=== PATIENT | female | born 1985 | race Caucasian/White ===

== ENCOUNTER → 2023-10-24 | Outpatient (CLI) | payer BC, SELFPAY ==
--- OUTSIDE RECORDS SUMMARY | 2023-10-24 11:58 | XMS RPT_ITS | CCD ---
Author Name Unknown Address [address] [place] [address] Organization [facility] Care Team Providers Care Flyer Maker Name Role Phone Bernabe Pope Unavailable Unavailable Devon DASH, Sherwin Irvin Primary Care Provider 1( [phone] Devon DASH, Sherwin Irvin Primary Care Provider SHERWIN OSORIO Primary Care Unavailable PEG MENA Attending Unavail able Medications Completed/Discontinued Medications Medication Drug Class(es) Dates Sig (Normalized) Sig (Original) betamethasone 0.5 mg/ml / clotrimazole 10 mg/ml topical cream (1 source) Azole Antifungal, Corticosteroid Start: 06-12-2022 clotrimazole-beta methasone (LOTRISONE) cream Apply 1 application to affected area twice daily. 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] Onset: 02-05-2015 08-29-2021 Chronic Other screening for suspected conditions (not mental disorders or infectious disease) (1 source) Cancer cervix screening status; Translations: [Encounter for screening for malignant neoplasm of cervix] Episodic Unclassified (1 source) Unknown / UNK(Unknown) Onset: 08-28-2017 Past or Other Problems Problem Classification Problem Date Documented Da te Episodic/Chronic Other and delivery including normal (2 sources) Normal ; Translations: [Encounter for supervision of normal , unspecified, unspecified trimester] Onset: 02-05-2015 02-05-2015 Episodic Unclassified (1 source) SORE THROAT,DRAINAGE Onset: 08-28-2017 Results Test Name Value Interpretation Reference Range Facil ity Vital Signs Date Time Vital Sign Value Performing Clinician Michelle sung 06-12-2022 13:12-0400 Body height 162.6 cm Peg David MD Work Phone: [facility] 06-12-2022 13:12-0400 Body weight 79.38 kg Peg David MD Work Phone: [facility] 06-12-2022 13:12-0400 Diastolic blood pressure 78 mm[Hg] Peg David MD Work Phone: [facility] 06-12-2022 13:12-0400 Systolic blood pressure 120 mm[Hg] Peg David MD Work Phone: [facility] Encounters Encounter Date Encounter Type Care Provider Facility Start: 06-12-2022 End: 06-12-2022 ambulatory SHERWIN OSORIO Facility:[facility] Start: 06-12-2022 End: 06-12-2022 Patient encounter procedure Peg David MD Work Phone: OB/Gynecology Plan of Treatment Date Care Activity Detail Author Start: 06-16-2025 Urine microalbumin profile DTAP,TDAP,TD (3 - Td or Tdap) [facility] Start: 12-31-2022 HPV TESTING HPV TESTING [facility] Start: 12-31-2022 PAP TESTING PAP TESTING [facility] Start: 05-04-2022 Influenza vaccination INFLUENZA (#1) [facility] Start: 09-03-2021 DEPRESSION ASSESSMENT DEPRESSION ASSESSMENT [facility] Start: 2003 HEPATITIS C SCREENING HEPATITIS C SCREENING [facility] Start: 1997 Adult depression screening assessment DEPRESSION SCREENING [facility] Start: 1985 COVID-19 VACCINE (#1) COVID-19 VACCINE (#1) [facility] Start: 1985 HEPATITIS B (1 of 3 - 3-dose series) HEPATITIS B (1 of 3 - 3-dose series) [facility] PAP FLUID CERVICAL SCREENING PAP FLUID CERVICAL SCREENING Lab Routine Screening for cervical cancer Encounter for screening for human papillomavirus (HPV) 06/12/2022 1:36 PM EDT [facility] Work Phone: [facility] Immunizations Immunization Date Immunization Notes Care Provider Gerson rod 07-19-2015 influenza, injectabl e, quadrivalent, contains preservative Peg David MD Work Phone: [facility] Work Phone: 06-16-2015 tetanus toxoid, redu lisa diphtheria toxoid, and acellular pertussis vaccine, adsorbed Peg David MD Work Phone: [facility] 03-07-2013 tetanus toxoid, redu lisa diphtheria toxoid, and acellular pertussis vaccine, adsorbed Peg David MD Work Phone: [facility] Work Phone: Payers Date Payer Category Payer Unknown [id number] 2011 Unknown [employer] PPO OOS [id number] 2011-Present [phone] [id number] [place] [address] PPO [id number] Social History Date Type Detail Facility Start: 01-24-2013 End: 06-12-2022 Tobacco smoking status NHIS Never smoked tobacco [facility] Work Phone: Start: 01-24-2013 End: 06-12-2022 Tobacco use and exposure Smokeless tobacco non-user [facility] Work Phone: Start: 05-02-2021 End: 06-12-2022 Alcohol intake Current drinker of alcohol (finding) [facility] Start: 08-20-2012 History SDOH Alcohol Comment OCCASIONALLY, BUT NOT WHILE [facility] Start: 1985 Sex Assigned At Not on file [facility] Progress note 06-12-2022 Note Date & Type Note Facility 06-12-2022 Note HNO ID: [id number] Author: Peg David MD Service: ? Author Type: Physician Type: Progress Notes Filed: 06/12/2022 1:44 PM Note Text: Thao is a 37 year old who presents for an annual gynecologic exam without complaints. 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 Still with occasional vaginal irritation - when not drinking enough fluids Menses: cycles every 28 days and 4 days of flow. Contraception: combined hormonal contraceptives HPV vaccine: No Last Pap: 01/04/2018 normal HPV: 01/02/2018 negative History of abnormal pap: No Last mammogram: never Sexually active: Yes History of STDS: None Patient concerns for STD exposure: No. Pain with intercourse: No Postcoital bleeding: No Exercise: active Diet: balanced OB History T3 L3 SAB0 IAB0 Ectopic0 Multiple0 Live Births3 Bit Gatherer History LMP: 04/17/2021, Having periods Age at Menarche: Age at First : Age at Menopause: Bit Gatherer History Comments: Sexual Activity: Yes; Male Contraception: Pill PAST MEDICAL HISTORY Diagnosis Date Gestational hypertension 03/31/2013 NEGATIVE MEDICAL HISTORY PAST SURGICAL HISTORY Procedure Laterality Date TONSILLECTOMY PRIMARY/SECONDARY Tonsillectomy FAMILY HISTORY Problem Relation Age of Onset Lipids Mother Cancer Father SKIN CANCER Diabetes Father Hypertension Father Cancer Paternal Grandfather SKIN Cancer Paternal Aunt SKIN Cancer Paternal Uncle SKIN Cancer Paternal Aunt SKIN Cancer Paternal Uncle SKIN Cancer Paternal Uncle SKIN SOCIAL HISTORY Social History Tobacco Use Smoking status: Never Smokeless tobacco: Never Vaping Use Vaping Use: Never used Substance Use Topics Alcohol use: Yes Comment: OCCASIONALLY, BUT NOT WHILE Drug use: No REVIEW OF SYSTEMS Abdomen: No abdominal pain, nausea, vomiting, diarrhea, or constipation. No bloating, early satiety, indigestion, or increased flatulence. Bladder: No dysuria, gross hematuria, urinary frequency, urinary urgency, or incontinence. Breast: No breast lumps, nipple d/c, overlying skin changes, redness or skin retraction. Allergies and current medication updated:Yes EXAM: BP 120/78 Ht 5' 4 (1.63m) Wt 175 lb (79.4kg) LMP 05/21/2022 BMI 30.02 kg/(m2). GENERAL: pleasant, female in no apparent distress HEENT: Normocephalic, atraumatic, mucus membranes moist, and no lesions NECK: Supple, full range of motion, no adenopathy, and thyroid normal DERMATOLOGY: Normal, without lesions, non-icteric, and non-hirsute BREAST: soft, non-tender, symmetric, no dominant mass, normal nipple-areolar complex, no lymphadenopathy, and no nipple discharge ABDOMEN: soft, non-tender, and no masses PELVIC: external genitalia normal, normal Bartholin's glands, urethra, [place]'s glands, no vulvar lesions, no cervical lesions, good vaginal support, physiologic discharge present, normal appearing perineal body and perianal region- vulva appears erythematous BIMANUAL: uterus normal size, shape and consistency, no adnexal masses, and non-tender RECTOVAGINAL: deferred. NEURO: alert and oriented x3,exam grossly non-focal EXTREMITIES: normal ASSESSMENT/PLAN: 1) Health maintenance: Pap done with HPV. Mammogram starting age 40. Nutrition, exercise and routine health maintenance exams reviewed. 2) Contraception: combined hormonal contraceptives. Contraceptive options reviewed and information provided. 3) STD screening: Declined STD check. 4) Follow up one year or sooner as needed 5) lotrisone for PRN use Peg Carranza MD [facility] Progress note 06-12-2022 Note Date & Type Note Facility 06-12-2022 Note HNO ID: [id number] Author: Renata Anguiano Ma Service: ? Author Type: ? Type: Progress Notes Filed: 06/12/2022 1:44 PM Note Text: Trim Master Operator offered: Patient declines. [facility] History of Present illness Narrative 06-12-2022 Peg David MD - 06/12/2022 1:13 PM EDTBziggy Anguiano Ma - 06/12/2022 1:09 PM EDT Note Date & Type Note Facility 06-12-2022 History of Presen t illness Narrative Thao is a 37 year old who presents for an annual gynecologic exam without complaints. 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 Still with occasional vaginal irritation - when not drinking enough fluids Menses: cycles every 28 days and 4 days of flow. Contraception: combined hormonal contraceptives HPV vaccine: No Last Pap: 01/04/2018 normal HPV: 01/02/2018 negative History of abnormal pap: No Last mammogram: never Sexually active: Yes History of STDS: None Patient concerns for STD exposure: No. Pain with intercourse: No Postcoital bleeding: No Exercise: active Diet: balanced OB History T3 L3 SAB0 IAB0 Ectopic0 Multiple0 Live Births3 Bit Gatherer History LMP: 04/17/2021, Having periods Age at Menarche: Age at First : Age at Menopause: Bit Gatherer History Comments: Sexual Activity: Yes; Male Contraception: Pill PAST MEDICAL HISTORY Diagnosis Date Gestational hypertension 03/31/2013 NEGATIVE MEDICAL HISTORY PAST SURGICAL HISTORY Procedure Laterality Date TONSILLECTOMY PRIMARY/SECONDARY <AGE 12 Tonsillectomy FAMILY HISTORY Problem Relation Age of Onset Lipids Mother Cancer Father SKIN CANCER Diabetes Father Hypertension Father Cancer Paternal Grandfather SKIN Cancer Paternal Aunt SKIN Cancer Paternal Uncle SKIN Cancer Paternal Aunt SKIN Cancer Paternal Uncle SKIN Cancer Paternal Uncle SKIN SOCIAL HISTORY Social History Tobacco Use Smoking status: Never Smokeless tobacco: Never Vaping Use Vaping Use: Never used Substance Use Topics Alcohol use: Yes Comment: OCCASIONALLY, BUT NOT WHILE Drug use: No REVIEW OF SYSTEMS Abdomen: No abdominal pain, nausea, vomiting, diarrhea, or constipation. No bloating, early satiety, indigestion, or increased flatulence. Bladder: No dysuria, gross hematuria, urinary frequency, urinary urgency, or incontinence. Breast: No breast lumps, nipple d/c, overlying skin changes, redness or skin retraction. Allergies and current medication updated:Yes EXAM: BP 120/78 Ht 5' 4 (1.63m) Wt 175 lb (79.4kg) LMP 05/21/2022 BMI 30.02 kg/(m^2). GENERAL: pleasant, female in no apparent distress HEENT: Normocephalic, atraumatic, mucus membranes moist, and no lesions NECK: Supple, full range of motion, no adenopathy, and thyroid normal DERMATOLOGY: Normal, without lesions, non-icteric, and non-hirsute BREAST: soft, non-tender, symmetric, no dominant mass, normal nipple-areolar complex, no lymphadenopathy, and no nipple discharge ABDOMEN: soft, non-tender, and no masses PELVIC: external genitalia normal, normal Bartholin's glands, urethra, [place]'s glands, no vulvar lesions, no cervical lesions, good vaginal support, physiologic discharge present, normal appearing perineal body and perianal region- vulva appears erythematous BIMANUAL: uterus normal size, shape and consistency, no adnexal masses, and non-tender RECTOVAGINAL: deferred. NEURO: alert and oriented x3,exam grossly non-focal EXTREMITIES: normal ASSESSMENT/PLAN: 1) Health maintenance: Pap done with HPV. Mammogram starting age 40. Nutrition, exercise and routine health maintenance exams reviewed. 2) Contraception: combined hormonal contraceptives. Contraceptive options reviewed and information provided. 3) STD screening: Declined STD check. 4) Follow up one year or sooner as needed 5) lotrisone for PRN use Peg Carranza MD Trim Master Operator offered: Patient declines. documented in this encounter [facility] Note 04-27-2022 Telephone Encounter - Luci Flood RN - 04/27/2022 8:50 AM EDTTelephone Encounter - Vangie Shaw - 04/27/2022 8:43 AM EDT Note Date & Type Note Facility 04-27-2022 Miscellaneous Notes Formattin g of this note might be different from the original. Refill request received for patients OCP Rx. Patient is scheduled for upcoming annual exam on 06/12/22. Please file pended Rx to get patient through until appointment. Luci Flood RN Patient has been identified by name and date of : Yes Last office visit in this department: 05/02/2021 Annual is scheduled 06/12/22. RX INSTRUCTIONS: Patient aware RX will be sent to pharmacy. No need to notify patient. Patient phones requesting refills as follows: Requested Prescriptions Pending Prescriptions Disp Refills norgestimate 0.25 mg-ethinyl estradiol 35 mcg (MONO-LINYAH) 0.25-35 mg-mcg per tablet 84 tablet 4 Sig: Take 1 tablet by mouth once daily. Please review and advise. Vangie Shaw documented in this encounter [facility] History of Past illness Narrative 03-31-2013 Note Date & Type Note Facility documented as of this encounter (statuses as of 04/28/2022) [facility] History of Past illness Narrative 03-31-2013 Note Date & Type Note Facility documented as of this encounter (statuses as of 06/12/2022) [facility] Evaluation note Note Date & Type Note Facility documented in this encounter [facility] Summary Purpose Family History No Family History Records FoundNo Family History Records Found Advance Directives No Advanced Directives Records FoundNo Advanced Directives Records Found Additional Source Comments INFORMATION SOURCE (unrecogn ized section and content) DATE CREATED AUTHOR AUTHOR'S ORGANIZ ATION 06/24/2022 [facility] Source Comments (unrecognize d section and content) In the event this informatio n is protected by the Federal Confidentiality of Alcohol and Drug Abuse Patient Records regulations: The Federal rules restrict any use of the information to criminally investigate or prosecute any alcohol or drug abuse patient.[facility] the event this information is protected by the Federal Confidentiality of Alcohol and Drug Abuse Patient Records regulations: The Federal rules restrict any use of the information to criminally investigate or prosecute any alcohol or drug abuse patient.[facility] Reason for Visit (unrecogniz ed section and content) Reason Comments Yearly Exam Care Teams (unrecognized sec tion and content) Flyer Maker Relationship Specialty Start Date End Date Sherwin Osorio MD PCP - General Family Medicine 10/05/14 FOR RECORDS PERTAINING TO PATIENTS WHO ARE OR HAVE BEEN ENROLLED IN A CHEMICAL DEPENDENCY/SUBSTANCEABUSE PROGRAM, SOME INFORMATION MAY BE OMITTED. This clinical summary was aggregated from multiple sources. Caution should be exercised in using it in the provision of clinical care. This summary normalizes information from multiple sources, and as a consequence, information in this document may materially change the coding, format and clinical context of patient data. In addition, data may be omitted in some cases. CLINICAL DECISIONS SHOULD BE BASED ON THE PRIMARY CLINICAL RECORDS. [employer] provides no warranty or guarantee of the accuracy or completeness of information in this document.
--- NOTE | 2023-10-24 12:08 | RAD_ITS ---
INDICATION: COUGH/HX OF PNEUMONIA EXAMINATION/TECHNIQUE: X-RAY - XR Chest 2 Views COMPARISON: No previous relevant examinations available for comparison.. FINDINGS: LIFE-SUPPORT AND LINES: 1. None HEART AND VESSELS: The cardiac silhouette, pulmonary vasculature have normal appearance. No evidence of congestive failure. LUNGS AND PLEURAL SPACES: RIGHT infrahilar atelectasis and infiltrate. Remaining lung zones are clear. No pulmonary mass is noted. MEDIASTINUM AND HILAR REGIONS: No masses adenopathy noted. No areas of calcification. Visualized upper airway is normal in position. BONY ELEMENTS: No acute bony changes noted. RAD/Chest PA and Lateral IMPRESSION: 1. RIGHT lower lobe atelectasis and infiltrate. No consolidation. 2. Remaining lung zones are clear. 3. No congestive failure. Electronically Signed: Estuardo Mcintyre MD at 22:24 EST ,
== END | disposition home or self-care (01) ==
PROVIDERS: PCP Nurse Practitioner Family; Referring Provider Nurse Practitioner Family; Visit Provider Nurse Practitioner Family
DX: R05.9 Cough, unspecified (principal)
CPT/HCPCS: 71046

== ENCOUNTER → 2024-06-30 | Outpatient (CLI) | payer BC, SELFPAY ==
--- NOTE | 2024-06-30 13:18 | RAD_ITS ---
STUDY: X-RAY CHEST REASON FOR EXAM: Female, 39 years old. COUGH, FEVER TECHNIQUE: Frontal and lateral views of the chest. COMPARISON: 10/24/2023. FINDINGS: Normal lung volumes. Opacification in the mid and lower left lung consistent with atelectasis or infiltrate of the lingula. Right lung is clear. No effusions. Normal size heart. Normal mediastinum and adri. Normal visualized pulmonary arteries. Normal visualized aortic arch and descending thoracic aorta. Normal visualized thoracic spine. Normal visualized ribs, clavicles, and shoulders. There is no demonstrated abnormality of the visualized soft tissue structures of the upper abdomen. RAD/Chest PA and Lateral IMPRESSION: Opacification in the mid and lower left lung consistent with atelectasis or infiltrate of the lingula. Electronically Signed: Mckinley Izquierdo MD at 14:11 EDT ,
--- OUTSIDE RECORDS SUMMARY | 2024-06-30 16:24 | XMS RPT_ITS | CCD ---
Author Organization [facility] Care Team Providers Care Service Dismantler Name Role Phone Bernabe Pope Unavailable Unavailable Sherwin Osorio MD Primary Care Provider Sherwin Osorio MD Primary Care Provider SHERWIN OSORIO Primary Care Unavailable TYRONE SWAIN Attending Unavail able Devon DASH, Sherwin Irvin Primary Care Provider Medications Current Medications Medication Drug Class(es) Dates Sig (Normalized) Sig (Original) betamethasone 0.5 mg/ml / clotrimazole 10 mg/ml topical cream (3 sources) Azole Antifungal, Corticosteroid Start: 06-17-2024 clotrimazole-beta methasone (LOTRISONE) cream Apply 1 application to affected area two times a day. 30 g 06/17/2024 Active Start: 06-12-2022 End: 06-17-2024 clotrimazole-betamethasone ( LOTRISONE) cream Apply 1 application to affected area twice daily. 30 g 06/12/2022 06/17/2024 Discontinued Comment on above: Apply 1 application to affected area twice daily. Ethinyl Estradiol / norgestimate (6 sources) Progestin, Estrogen Start: take 1 tablet by mouth once daily, then take 1 tablet by mouth every week norgestimate 0.25 mg-ethinyl estradiol 35 mcg (MONO-LINYAH) 0.25-35 mg-mcg per tablet Take 1 tablet by mouth once daily. Take one active pill daily- discard placebo week x 3mo 112 tablet 1 06/17/2024 Active Start: 06-05-2023 End: 06-17-2024 take 1 tablet by mouth once daily, then take 1 tablet by mouth every week norgestimate 0.25 mg-ethinyl estradiol 35 mcg (MONO-LINYAH) 0.25-35 mg-mcg per tablet Take 1 tablet by mouth once daily. Take one active pill daily- discard placebo week x 3mo 112 tablet 4 06/05/2023 06/17/2024 Discontinued Start: 06-12-2022 take 1 tablet by dimple th once daily, then take 1 tablet by mouth every week norgestimate 0.25 mg-ethinyl estradiol 35 mcg (MONO-LINYAH) 0.25-35 mg-mcg per tablet Take 1 tablet by mouth once daily. Take one active pill daily- discard placebo week x 3mo 112 tablet 4 06/12/2022 Active Start: 04-28-2022 End: 06-12-2022 take 1 tablet by mouth once daily norgestimate 0.25 mg-ethinyl estradiol 35 mcg (MONO-LINYAH) 0.25-35 mg-mcg per tablet Take 1 tablet by mouth once daily. 84 tablet 0 04/28/2022 06/12/2022 Discontinued Start: 04-28-2022 take 1 tablet by dimple th once daily norgestimate 0.25 mg-ethinyl estradiol 35 mcg (MONO-LINYAH) 0.25-35 mg-mcg per tablet Take 1 tablet by mouth once daily. 84 tablet 0 04/28/2022 Active Start: 05-02-2021 End: 04-27-2022 take 1 tablet by mouth once daily norgestimate 0.25 mg-ethinyl estradiol 35 mcg (MONO-LINYAH) 0.25-35 mg-mcg per tablet Take 1 tablet by mouth once daily. 84 tablet 4 05/02/2021 04/27/2022 Discontinued Comment on above: Take 1 tablet by dimple th once daily. Take 1 tablet by dimple th once daily. Take one active pill daily- discard placebo week x 3mo Problems Active Problems Problem Classification Problem Date Documented Date Episodic/Chronic Immunizations and screening for infectious disease (1 source) Patient encounter status; Translations: [Encounter for screening for human papillomavirus (HPV)] Episodic Other congenital anomalies (3 sources) Arthrogryposis; Translations: [Other specified congenital musculoskeletal deformities] Onset: 02-05-2015 08-29-2021 Chronic Other screening for suspected conditions (not mental disorders or infectious disease) (1 source) Cancer cervix screening status; Translations: [Encounter for screening for malignant neoplasm of cervix] Episodic Unclassified (1 source) Unknown / UNK(Unknown) Onset: 08-28-2017 Past or Other Problems Problem Classification Problem Date Documented Da te Episodic/Chronic Hypertension complicating ; childbirth and the puerperium (1 source) -induced hypertension; Translations: [Gestational [-induced] hypertension without significant proteinuria, unspecified trimester] Onset: 03-31-2013 Resolved: 05-23-2013 08-29-2021 Episodic Other complications of (1 source) High risk ; Translations: [Supervision of high risk , unspecified, unspecified trimester] Onset: 03-31-2013 Resolved: 05-23-2013 08-29-2021 Episodic Other and delivery including normal (3 sources) Normal ; Translations: [Encounter for supervision of normal , unspecified, unspecified trimester] Onset: 02-05-2015 02-05-2015 Episodic Residual codes; unclassified (1 source) FH: Congenital anomaly; Translations: [Family history of other congenital malformations, deformations and chromosomal abnormalities] Onset: 08-20-2012 Resolved: 05-23-2013 08-29-2021 Episodic Unclassified (1 source) SORE THROAT,DRAINAGE Onset: 08-28-2017 Results Test Name Value Interpretation Reference Range Facility [facility] 06-12-2022 CNOV Office Visit (OBGYWM ) BOBBI BARAJAS ([id number]) 1985 F Date Time Provider Department 06/12/22 1:20 PM TYRONE SWAIN OBGYWDanae During your visit today, we recorded the following information about you: Blood pressure Weight Height Last Period 120/78 79.4 kg 1.626 m 05/21/22 Renata Anguiano Ma 06/12/2022 1:44 PM Signed Behavioral Therapy Coordinator offered: Patient declines. Tyrone Carranza MD 06/12/2022 1:44 PM Signed Bobbi is a 37 year old who presents for an annual gynecologic exam without complaints. 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 [...] L3 SAB0 IAB0 Ectopic0 Multiple0 Live Births3 Music Specialist History LMP: 04/17/2021, Having periods Age at Menarche: Age at First : Age at Menopause: Music Specialist History Comments: Sexual Activity: Yes; Male Contraception: [...] external genitalia normal, normal Bartholin's glands, urethra, [place]'s glands, no vulvar lesions, no cervical lesions, [...] as needed 5) lotrisone for PRN use Tyrone Carranza MD Referring Provider: SELF [200] Allergies As of Date: 06/12/2022 (No Known Allergies) Date Reviewed: 05/02/2021 Reviewed by: Renata Lou Ma - Fully Assessed Reason for Visit: Yearly Exam [187] Primary Visit Diagnosis:Encounter for gynecological examination (general) (routine) without abnormal findings [Z01.419] Other Visit Diagnoses:Screening for cervical cancer [Z12.4] Encounter for screening for human papillomavirus (HPV) [Z11.51] Order(s):PAP FLUID CERVICAL SCREENING [[id number]] Order #: [id number]. #:[id number] norgestimate 0.25 mg-ethinyl estradiol 35 mcg (MONO-LINYAH) 0.25-35 mg-mcg per tabletTake 1 tablet by mouth once daily. Take one active pill daily- discard placebo week x 3moDisp: 112 tabletRfl: 4 clotrimazole-betametha sone (LOTRISONE) creamApply 1 application to affected area twice daily.Disp: 30 gRfl: 0 Prescriptions as of 06/12/2022 - norgest (more content not included)... Normal [facility] HPV W/GENOTYPE THIN PREPon 1 HPV 16 Ag Ql (Unsp spec) Negative Normal Negative for HPV DNA high risk type [address] [facility] Comment on above: Order Comment: Speci men Type: FLUID SPECIMEN Ordering Facility: [facility] Address: [address] [place] [address] Performed By: #### H PVHRT #### [facility] CLIA [id number] [address] [place] [address] [place] HPV 18 Ag Ql (Unsp spec) Negative Normal Negative for HPV DNA high risk type [address] [facility] Comment on above: Order Comment: Speci men Type: FLUID SPECIMEN Ordering Facility: [facility] Address: [address] [place] [address] Performed By: #### H PVHRT #### [facility] CLIA [id number] [address] [place] [address] [place] HPV 31+33+35+39+45+51+52 +56+58+59+66+68 DNA DEWAYNE+probe Ql (Cvx) Negative for HPV DNA high risk types: 31,33,35,39,45,51,52,5 6,58,59,66,68 by PCR. Normal Negative for HPV DNA high risk types: 31,33,35,39,45 ,51,52,56,58,5 9,66,[address] [facility] Comment on above: Order Comment: Speci men Type: FLUID SPECIMEN Ordering Facility: [facility] Address: [address] [place] [address] Performed By: #### H PVHRT #### [facility] CLIA [id number] [address] [place] [address] [place] PAP FLUID CERVICAL SCREENING on 06-12-[address] [facility] Comment on above: Order Comment: Speci men Type: FLUID SPECIMEN Ordering Facility: [facility] Address: [address] [place] [address] Result Comment: Gyne cologic Cytology Report Case: [id number] Authorizing Provider: Tyrone David, Collected: 06/12/2022 01:36 PM MD Ordering Location: OB/Gynecology Received: 06/12/2022 02:21 PM First Screen: BRYANT Mcneill, ASCP Specimen: Pap, Boiler Maker, Screening, CERVICAL SCREENING FLUID Performed By: #### L [id number] #### [facility] CLIA [id number] [address] [place] [address] [place] CLINICAL HISTORY ROUTINE EXAM Normal [facility] Comment on above: Order Comment: Speci men Type: FLUID SPECIMEN Ordering Facility: [facility] Address: [address] [place] [address] Performed By: #### L [id number] #### [facility] CLIA [id number] [address] [place] [address] [place] CYTOLOGY INTERPRETATION PAP Normal [facility] Comment on above: Order Comment: Speci men Type: FLUID SPECIMEN Ordering Facility: [facility] Address: [address] [place] [address] Result Comment: Nega tive for Intraepithelial lesion or malignancy. Performed By: #### L [id number] #### [facility] CLIA [id number] [address] [place] [address] [facility] FINAL DIAGNOSIS Normal [facility] Comment on above: Order Comment: Speci men Type: FLUID SPECIMEN Ordering Facility: [facility] Address: [address] [place] [address] Result Comment: A - CERVICAL SCREENING FLUID Satisfactory for interpretation Negative for Intraepithelial lesion or malignancy. Performed By: #### L [id number] #### [facility] CLIA [id number] [address] [place] [address] [place] FINAL PERFORMING LAB Normal [facility] Comment on above: Order Comment: Speci men Type: FLUID SPECIMEN Ordering Facility: [facility] Address: [address] [place] [address] Result Comment: Tech nical component, employee benefits director screening performed at [facility], [address] [place] [id number] CLIA# [id number] Diagnostic interpretation performed at [facility], [address] [place] [address] CLIA# [id number] Partition Assembly Machine Operator: Momo Mccall M.D. Performed By: #### L [id number] #### [facility] CLIA [id number] [address] [place] [address] [place] HPV REQUESTED? Yes, automatic HPV patients over [address] [facility] Comment on above: Order Comment: Speci men Type: FLUID SPECIMEN Ordering Facility: [facility] Address: [address] [place], [place] [id number] Performed By: #### L [id number] #### [facility] CLIA [id number] [address] [place] [address] [place] LMP 05/21/[address] [facility] Comment on above: Order Comment: Speci men Type: FLUID SPECIMEN Ordering Facility: [facility] Address: [address] [place], [place] [id number] Performed By: #### L [id number] #### [facility] CLIA [id number] [address] [place] [address] [place] PAP DISCLAIMER COMMENT The Pap Smear is a screening test for cervical cancer. False negative results occur with all screening tests, emphasizing the need for rescreening at recommended intervals, and clinical correlation. Normal [facility] Comment on above: Order Comment: Speci men Type: FLUID SPECIMEN Ordering Facility: [facility] Address: [address] [place] [address] Performed By: #### L [id number] #### [facility] CLIA [id number] [address] [place] [address] [place] PAP ASSOCIATE DRAFTER COMMENT This specimen has be en analyzed by the ThinPrep Imaging System, an automated imaging and review system, which assists the laboratory in evaluating cells on ThinPrep Pap tests. Following automated imaging, selected talbot from every slide are reviewed by a employee benefits director. Normal [facility] Comment on above: Order Comment: Speci men Type: FLUID SPECIMEN Ordering Facility: [facility] Address: [address] [place] [address] Performed By: #### L [id number] #### [facility] CLIA [id number] [address] [place] [address] OF ART MSCon 08-28-2017 [facility] REPORT Normal [facility] DATE OF SERVICE: 08/28/2017REASON FOR VISIT: Sore throat, drainage.HISTORY OF PRESENT ILLNESS: This is a 32-year-old female presenting with sore throatand drainage for the last 5 days. Denied any chest discomfort. No fever.REVIEW OF SYSTEMS: Normal.PAST MEDICAL HISTORY: Reviewed.FAMILY HISTORY: Reviewed.SOCIAL HISTORY: Reviewed.ALLERGIES: NKA.MEDICATIONS: Reviewed.PHYSICAL EXAMINATION:General: She is awake, alert, not in distress. No dyspnea.Vital Signs: Temperature 97.7. Blood pressure 150/100. Pulse 82. Respirations 18.Pulse oximetry 98%. Pain score 2/10.HEENT: Exam revealed throat was not injected. There is mild paranasal sinustenderness.Chest: Clear to auscultation. No crackles, wheezing, or rhonchi.Heart: Regular rhythm.ASSESSMENT: Upper respiratory infection.PLAN: Clinical findings were discussed with the patient in detail. I explained toher that there appears to be no immediate need of an antibiotic right now. Sheshould do gargles, maintain hydration, Tylenol as needed. Use saline nasal spray ikypvvp-phb-lyysfkp cough or cold medicine if needed. I have given her a prescriptionfor amoxicillin 875 mg twice a day for 10 days with no refills to keep if hersymptoms get worse, then she will fill the antibiotics. If not, then she will notneed to fill. The patient understands and agrees. Bernabe Pope [facility]/[id number]: 08/28/2017 12:23DT: 08/28/2017 13:25SSI File#: [id number] #: [id number]/[id number] d by [facility] PATIENT NAME: BOBBI BARAJAS Veda Olivarez MEDICAL REC #: [id number], [place] [address] [facility] [id number]/20/18 1709 PAWPR [facility] PATIENT NAME: BOBBI BARAJAS Veda Olivarez MEDICAL REC #: [id number], [place] [address] [facility] PHYSICIAN Normal [facility] Vital Signs Date Time Vital Sign Value Performing Clinician Michelle sung 06-12-2022 13:120400 Body height 162.6 cm Tyrone David MD Work Phone: [facility] 06-12-2022 13:12040 Body weight 79.38 kg Tyrone David MD Work Phone: [facility] 06-12-2022 13:12-0400 Diastolic blood pressure 78 mm[Hg] Tyrone David MD Work Phone: [facility] 06-12-2022 13:12-0400 Systolic blood pressure 120 mm[Hg] Tyrone David MD Work Phone: [facility] Encounters Encounter Date Encounter Type Care Provider Facility Start: 06-17-2024 End: 06-17-2024 Refill Tyrone David MD Work Phone: OB/Gynecology Comment on above: Refill Request Start: 06-12-2022 End: 06-12-2022 ambulatory SHERWIN OSORIO Facility:[facility] Start: 06-12-2022 End: 06-12-2022 Patient encounter procedure Tyrone David MD Work Phone: OB/Gynecology Comment on above: Encounter for gyneco logical examination (general) (routine) without abnormal findings (Primary Dx); Screening for cervical cancer; Encounter for screening for human papillomavirus (HPV) Start: 06-12-2022 End: 06-12-2022 Patient encounter status Tyrone David MD Work Phone: OB/Gynecology Start: 04-27-2022 Refill Tyrone David MD Work Phone: OB/Gynecology Comment on above: Refill Request Start: 08-28-2017 Patient encounter Praduyen Martinez lity:[facility] Plan of Treatment Date Care Activity Detail Author Start: 06-12-2027 Screening for malign ant neoplasm of cervix Cervical Cancer Screening [facility] Start: 06-16-2025 Urine microalbumin profile [facility] Start: 11-24-2024 End: 11-24-2024 Patient encounter procedure 11/24/2024 1:20 PM EDT Office Visit OB/Gynecology [address] [place] [address] Tyrone Swain MD [address] [place] [address] n/a OB/Gynecology Comment on above: n/a Start: 05-04-2024 Covid-19 Vaccine ( season) Covid-19 Vaccine ( season) [facility] Start: 05-04-2024 Influenza vaccination Influenza Vacc ine (#1) [facility] Start: 12-31-2022 HPV TESTING HPV TESTING [facility] Start: 12-31-2022 PAP TESTING PAP TESTING [facility] Start: 05-04-2022 Influenza vaccination INFLUENZA (#1) [facility] Start: 09-03-2021 DEPRESSION ASSESSMENT DEPRESSION ASS ESSMENT [facility] Start: 2004 Hepatitis B Vaccine (1 of 3 - 19+ 3-dose series) Hepatitis B Vaccine (1 of 3 - 19+ 3-dose series) [facility] Start: 2003 Anxiety Screening Anxiety Screening [facility] Start: 2003 Depression Screening Depression Scre ening [facility] Start: 2003 HEPATITIS C SCREENING HEPATITIS C [facility] Start: 2003 Hepatitis C screening Hepatitis C [facility] Start: 1997 Adult depression screening assessment DEPRESSION SCREENING [facility] Start: 1985 COVID-19 VACCINE (#1) COVID-19 VACCI NE (#1) [facility] Start: 1985 HEPATITIS B (1 of 3 - 3-dose series) HEPATITIS B (1 of 3 - 3-dose series) [facility] PAP FLUID CERVICAL SCREENING PAP FLUID CERVICAL SCREENING Lab Routine Screening for cervical cancer Encounter for screening for human papillomavirus (HPV) 06/12/2022 1:36 PM EDT [facility] Work Phone: [facility] Immunizations Immunization Date Immunization Notes Care Provider Fa cility 07-19-2015 influenza, injectabl e, quadrivalent, contains preservative Tyrone David MD Work Phone: [facility] Work Phone: 07-19-2015 influenza virus vaccine, unspecified formulation Tyrone David MD Work Phone: [facility] 06-16-2015 tetanus toxoid, redu lisa diphtheria toxoid, and acellular pertussis vaccine, adsorbed Tyrone David MD Work Phone: [facility] 03-07-2013 tetanus toxoid, redu lisa diphtheria toxoid, and acellular pertussis vaccine, adsorbed Tyrone David MD Work Phone: [facility] Work Phone: Payers Date Payer Category Payer Unknown [id number] 2011 Unknown [employer] PPO OOS [id number] 2011-Present [phone] [address] [place] [address] PPO [id number] Social History Date Type Detail Facility Start: 01-24-2013 End: 06-12-2022 Tobacco smoking status NHIS Never smoked tobacco [facility] Work Phone: Start: 01-24-2013 End: 06-12-2022 Tobacco use and exposure Smokeless tobacco non-user [facility] Work Phone: Start: 05-02-2021 End: 06-12-2022 Alcohol intake Current drinker of alcohol (finding) [facility] Start: 08-20-2012 History SDOH Alcohol Comment OCCASIONALLY, BUT NOT WHILE [facility] Start: 1985 Sex Assigned At Not on file C [facility] Start: 06-12-2022 End: 09-29-2022 History of Social function [facility] Start: 06-12-2022 End: 09-29-2022 Tobacco use panel [facility] National Score (1-100), lower number is lower risk 61 [facility] Note 06-17-2024 Telephone Encounter - Senait Sahu RN - 06/17/2024 8:14 AM EDT Note Date & Type Note Facility 06-17-2024 Miscellaneous Notes Formattin g of this note is different from the original. Next annual scheduled 11/24/24 with DM. Requested Prescriptions Pending Prescriptions Disp Refills clotrimazole-betamethasone (LOTRISONE) cream 30 g 0 Sig: Apply 1 application to affected area two times a day. norgestimate 0.25 mg-ethinyl estradiol 35 mcg (MONO-LINYAH) 0.25-35 mg-mcg per tablet 112 tablet 1 Sig: Take 1 tablet by mouth once daily. Take one active pill daily- discard placebo week x 3mo Senait Sahu RN documented in this encounter [facility] Telephone encounter Note 06-17-2024 Telephone Encounter - Senait Sahu RN - 06/17/2024 8:14 AM EDT Note Date & Type Note Facility 06-17-2024 Telephone encount er Note Next annual scheduled 11/24/24 with DM. Requested Prescriptions Pending Prescriptions Disp Refills clotrimazole-betamethasone (LOTRISONE) cream 30 g 0 Sig: Apply 1 application to affected area two times a day. norgestimate 0.25 mg-ethinyl estradiol 35 mcg (MONO-LINYAH) 0.25-35 mg-mcg per tablet 112 tablet 1 Sig: Take 1 tablet by mouth once daily. Take one active pill daily- discard placebo week x 3mo Senait Sahu RN [facility] Progress note 06-12-2022 Note Date & Type Note Facility 06-12-2022 Note HNO ID: [id number] Author: Tyrone David MD Service: ? Author Type: Physician Type: Progress Notes Filed: 06/12/2022 1:44 PM Note Text: Bobbi is a 37 year old who presents for an annual gynecologic exam without complaints. 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 Progress note 06-12-2022 Note Date & Type Note Facility 06-12-2022 Note HNO ID: [id number] Author: Renata Anguiano Ma Service: ? Author Type: ? Type: Progress Notes Filed: 06/12/2022 1:44 PM Note Text: Behavioral Therapy Coordinator offered: Patient declines. [facility] History of Present illness Narrative 06-12-2022 Tyrone David MD - 06/12/2022 1:13 PM EDTBethramon Anguiano Ma - 06/12/2022 1:09 PM EDT Note Date & Type Note Facility 06-12-2022 History of Presen t illness Narrative Bobbi is a 37 year old who presents for an annual gynecologic exam without complaints. 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 Still with occasional vaginal [...] L3 SAB0 IAB0 Ectopic0 Multiple0 Live Births3 Music Specialist History LMP: 04/17/2021, Having periods Age at Menarche: Age at First : Age at Menopause: Music Specialist History Comments: Sexual Activity: Yes; Male Contraception: [...] external genitalia normal, normal Bartholin's glands, urethra, [place]'s glands, no vulvar lesions, no cervical lesions, [...] as needed 5) lotrisone for PRN use Tyrone Carranza MD Behavioral Therapy Coordinator offered: Patient declines. documented in this encounter [facility] Note 04-27-2022 Telephone Encounter - Luci [...] advise. Vangie Shaw documented in this encounter [facility] History of Past illness Narrative 03-31-2013 Note Date & Type Note Facility 03-31-2013 History of Past i llness Narrative Problem Noted Date Resolved Date Gestational hypertension 03/31/2013 013 Overview: Recommend weekly NSTs and delivery at 39-40 weeks Normal growth and zoltan April 03, 2013 normal 24 hour urine 20, preeclampsia precautions reviewed, start home bp monitoring parameters given High-risk 03/31/2013 05/23/2013 Overview: Girl- Amanda Family history of defects 08/20/2012 05/23/2013 Overview: 08/20/2012 She states her son has arthrogryposis. This disease affects multiple joints and muscles for him.He has joint contractures. She states that she was told this is not a genetic disease. Her son does see Dr. Kate Martin, [facility]. Patient signed a release of records form to obtain her son Joseph's records for review. Patient also signed a release of records form for [facility] from her last delivery. Patient's has a third cousin with Down syndrome. (Parents decline genetic counseling or first trimester screening -JV) documented as of this encounter (statuses as of 04/28/2022) [facility] History of Past illness Narrative 03-31-2013 Note Date & Type Note Facility 03-31-2013 History of Past i llness Narrative Problem Noted Date Resolved Date Gestational hypertension 03/31/2013 013 Overview: Recommend weekly NSTs and delivery at 39-40 weeks Normal growth and zoltan April 03, 2013 normal 24 hour urine 20, preeclampsia precautions reviewed, start home bp monitoring parameters given High-risk 03/31/2013 05/23/2013 Overview: Girl- Amanda Family history of defects 08/20/2012 05/23/2013 Overview: 08/20/2012 She states her son has arthrogryposis. This disease affects multiple joints and muscles for him.He has joint contractures. She states that she was told this is not a genetic disease. Her son does see Dr. Kate Martin, at [facility]. Patient signed a release of records form to obtain her son Joseph's records for review. Patient also signed a release of records form for [facility] from her last delivery. Patient's has a third cousin with Down syndrome. (Parents decline genetic counseling or first trimester screening -JV) documented as of this encounter (statuses as of 06/12/2022) [facility] Evaluation note Note Date & Type Note Facility Evaluation note Diagnosis Encounter for gynecological examination (general) (routine) without abnormal findings- Primary Screening for cervical cancer Screening for malignant neoplasm of the cervix Encounter for screening for human papillomavirus (HPV) Special screening examination for human papillomavirus (HPV) documented in this encounter [facility] Summary Purpose Family History No Family History Records FoundNo Family History Records Found Advance Directives No Advanced Directives Records FoundNo Advanced Directives Records Found Additional Source Comments INFORMATION SOURCE (unrecogn ized section and content) DATE CREATED AUTHOR 03/24/2018 [facility] Julia everettyulisa Mcneal DATE CREATED AUTHOR AUTHOR'S ORGANIZ ATION 06/24/2022 [facility] Source Comments (unrecognize d section and content) In the event this informatio n is protected by the Federal Confidentiality of Alcohol and Drug Abuse Patient Records regulations: The Federal rules restrict any use of the information to criminally investigate or prosecute any alcohol or drug abuse patient.[facility] the event this information is protected by the Federal Confidentiality of Alcohol and Drug Abuse Patient Records regulations: The Federal rules restrict any use of the information to criminally investigate or prosecute any alcohol or drug abuse patient.[facility] the event this information is protected by the Federal Confidentiality of Alcohol and Drug Abuse Patient Records regulations: The Federal rules restrict any use of the information to criminally investigate or prosecute any alcohol or drug abuse patient.[facility] Reason for Visit (unrecogniz ed section and content) Reason Comments Refill Request Reason Comments Yearly Exam Reason Onset Date Comments Refill Request 06/17/2024 Care Teams (unrecognized sec tion and content) Service Dismantler Relationship Specialty Start Date End Date Sherwin Osorio MD PCP - General Family Practice 10/05/14 Service Dismantler Relationship Specialty Start Date End Date Sherwin Osorio MD PCP - General Family Medicine 10/05/14 Service Dismantler Relationship Specialty Start Date End Date Sherwin [...] BE BASED ON THE PRIMARY CLINICAL RECORDS. [facility] provides no warranty or guarantee of the accuracy or completeness of information in this document.
== END | disposition home or self-care (01) ==
LOC: MTRAD 13:16
PROVIDERS: PCP Nurse Practitioner Family; Referring Provider Family Medicine; Visit Provider Family Medicine
DX: R05.9 Cough, unspecified (principal); R50.9 Fever, unspecified
CPT/HCPCS: 71046